=== PATIENT | female | born 1995 | race American Indian/Alaskan Native ===

== ENCOUNTER 2022-05-05 19:02 | Emergency (ER) | payer SELFPAY ==
[2022-05-05 19:14] VITALS: BP 118/76
--- NOTE | 2022-05-05 19:42 | Emergency Department Report ---
ED Asthma HPI - General Chief Complaint: Adult Asthma Stated Complaint: WHEEZING/ASTHMA Time Seen by Provider: 05/05/22 19:27 Source: EMS Mode of arrival: Ambulatory Limitations: No Limitations - History of Present Illness Initial Comments: 27 yo F with h/o Asthma brought in by EMS with asthma attack. Pt reports that she has been having recurrent episode lately especially when at her husbands place. She says she tried to stay away but have no other place to stay. She claimed to have mold in that particular house that is triggering her asthma. No fever or chills reported. Cough is non productive and associated with wheezing. Pt was given Solumedrol + DuaNeb and Magnesium en route by EMS. Symptoms is resolved according to patient on presentation. No other modifying or associated factors reported. MD Complaint: "asthma attack", shortness of breath, wheezing - Related Data Previous Rx's Medication Instructions Recorded Last Taken Type predniSONE [Deltasone] 20 mg PO QDAY 5 Days #5 tab NS 05/05/22 Unknown Rx Allergies Allergy/AdvReac Type Severity Reaction Status Date / Time No Known Allergies Allergy Verified 05/05/22 19:14 ED Review of Systems ROS: Stated complaint: WHEEZING/ASTHMA Other details as noted in HPI Comment: All other systems reviewed and negative Respiratory: cough, shortness of breath, wheezing ED Past Medical Hx - Past Medical History Previous Medical History?: Yes Hx Asthma: Yes - Medications Home Medications: Home Medications Medication Instructions Recorded Confirmed Last Taken Type predniSONE [Deltasone] 20 mg PO QDAY 5 Days #5 tab NS 05/05/22 Unknown Rx ED Physical Exam - General Limitations: No Limitations General appearance: alert, in no apparent distress - Head Head exam: Present: normal inspection - Eye Eye exam: Present: normal appearance Pupils: Present: normal accommodation - ENT ENT exam: Present: normal exam, normal orophraynx, mucous membranes moist - Neck Neck exam: Present: normal inspection, full ROM. Absent: tenderness, lymphadenopathy - Respiratory Respiratory exam: Present: normal lung sounds bilaterally. Absent: respiratory distress, accessory muscle use - Cardiovascular Cardiovascular Exam: Present: regular rate, normal rhythm, normal heart sounds - GI/Abdominal GI/Abdominal exam: Present: soft, normal bowel sounds. Absent: distended, tenderness - Extremities Exam Extremities exam: Present: normal inspection, full ROM, normal capillary refill. Absent: tenderness, pedal edema - Back Exam Back exam: Absent: tenderness - Neurological Exam Neurological exam: Present: alert, oriented X3 - Psychiatric Psychiatric exam: Present: normal affect, normal mood - Skin Skin exam: Present: warm, normal color ED Course Vital Signs 05/05/22 19:12 Temperature 98.4 F Pulse Rate 80 Respiratory 16 Rate Blood Pressure 118/76 [Left] O2 Sat by Pulse 97 Oximetry - Reevaluation(s) Reevaluation #1: 05/05/22 19:43 brought in by EMS with Asthma attack and treated with DuaNeb and Solumedrol and Magnessium with complete resolution of symptoms-- Yes this is likely allergic trigger patient encouraged to stay away as much as possible from triggers. No other modifying or associated factors reported. Critical care attestation.: If time is entered above; I have spent that time in minutes in the direct care of this critically ill patient, excluding procedure time. ED Disposition Clinical Impression: Asthma exacerbation attacks Qualifiers: Asthma severity: moderate Asthma persistence: unspecified Qualified Code(s): J45.901 - Unspecified asthma with (acute) exacerbation Disposition: 01 HOME / SELF CARE / HOMELESS Is pt being admited?: No Does the pt Need Aspirin: No Condition: Stable Instructions: Cough, Adult, [id number], Asthma Attack Prevention, Adult, Asthma, Adult, [id number] Additional Instructions: It is important to take and complete your steroid prednisone 20 mg daily for 5 days as prescribed Call and follow-up with your primary doctor in the next 3-5 progress Please do not hesitate to call or return to emergency room if your symptoms worsen Prescriptions: predniSONE [Deltasone] 20 mg PO QDAY 5 Days #5 tab NS Time of Disposition: 19:48
== END 2022-05-05 20:16 | disposition home or self-care (01) ==
LOC: ED 19:02
DX: J45.901 Unspecified asthma with (acute) exacerbation (principal)
CPT/HCPCS: 99283